=== PATIENT | male | born 1995 | race Caucasian/White ===

== ENCOUNTER 2018-06-19 11:24 | Emergency (ER) | payer OTHER ==
[2018-06-19 11:34] VITALS: BP 129/82; PULSE 98; RESP 18; TEMP 98.5
[2018-06-19] MEDS ORDERED: FAMOTIDINE 20 MG TAB PO STA (12:04)
[2018-06-19] MEDS ORDERED: predniSONE 20 MG TAB PO STA (12:04)
--- NOTE | 2018-06-19 12:08 | ED ---
General Adult HPI - General Chief complaint: Skin/Abscess/Foreign Body Stated complaint: bee sting to finger Time Seen by Provider: 06/19/18 11:53 Source: patient, RN notes reviewed Mode of arrival: ambulatory Limitations: no limitations - History of Present Illness Initial comments: Patient's a 22-year-old male presenting to the emergency room today with chief complaint of insect bite that occurred to the left pinky yesterday afternoon per patient states that he felt something sting him. He states he did not see it. Patient states that he's had some increased swelling to the left hand. Patient states that he did take some Benadryl yesterday has also taken again today. States swelling still present. States locally tender. Patient denies any other complaints or symptoms. Patient denies any recent fever, chills, shortness of breath, chest pain, back pain, abdominal pain, nausea or vomiting, numbness or tingling, headaches or visual changes, or any other complaints. - Related Data Home Medications Medication Instructions Recorded Confirmed HYDROcodone/APAP 10-325MG [Vashon 1 tab PO Q6H PRN 11/23/15 12/29/15 10-325] Previous Rx's Medication Instructions Recorded Penicillin V Potassium [Pen Vee K] 500 mg PO QID 10 Days day 12/29/15 Famotidine [Pepcid] 20 mg PO BID #20 tablet 06/19/18 predniSONE 60 mg PO DAILY 5 Days tab 06/19/18 Allergies Allergy/AdvReac Type Severity Reaction Status Date / Time No Known Allergies Allergy Verified 06/19/18 11:32 Review of Systems ROS Statement: Those systems with pertinent positive or pertinent negative responses have been documented in the HPI. ROS Other: All systems not noted in ROS Statement are negative. Past Medical History Additional Past Medical History / Comment(s): stomach ulcers, and hernia, chronic back pain. History of Any Multi-Drug Resistant Organisms: None Reported Additional Past Surgical History / Comment(s): eyes Past Psychological History: ADD/ADHD, Anxiety, Depression Smoking Status: Current every day smoker Past Alcohol Use History: None Reported Past Drug Use History: Marijuana General Exam - General Exam Comments Initial Comments: General: The patient is awake and alert, in no distress, and does not appear acutely ill. Eye: Pupils are equal, round and reactive to light, extra-ocular movements are intact. No nystagmus. There is normal conjunctiva bilaterally. No signs of icterus. Ears, nose, mouth and throat: There are moist mucous membranes and no oral lesions. Neck: The neck is supple, there is no tenderness or JVD. Cardiovascular: There is a regular rate and rhythm. No murmur, rub or gallop is appreciated. Respiratory: Lungs are clear to auscultation, respirations are non-labored, breath sounds are equal. No wheezes, stridor, rales, or rhonchi. Musculoskeletal: Normal ROM, no tenderness. Strength 5/5. Sensation intact. Pulses equal bilaterally 2+. Neurological: A&O x 3. CN II-XII intact, There are no obvious motor or sensory deficits. Coordination appears grossly intact. Speech is normal. Skin: Local swelling to left hand minimal redness to the posterior aspect. No lymphangitic streaking. Psychiatric: Cooperative, appropriate mood & affect, normal judgment. Limitations: no limitations Course Vital Signs 06/19/18 11:32 Temperature 98.5 F Pulse Rate 98 Respiratory 18 Rate Blood Pressure 129/82 O2 Sat by Pulse 100 Oximetry Medical Decision Making - Medical Decision Making Patient's vital stable. Was stung to the left pinky finger yesterday. Has been taking Benadryl. No improvement. Patient denies any other complaints other than pain swelling to the left hand. No difficulty breathing swallowing. No angioedema. Options were discussed with patient about a shot of steroids here the emergency room he has declined. He states he does not like shots would rather take pills. Patient will be started on prednisone and also Pepcid here in the emergency room. Advised continue Benadryl. Advised return if symptoms increase or worsen. Disposition Clinical Impression: Insect bite, Allergic reaction Disposition: HOME SELF-CARE Condition: Good Instructions: General Allergic Reaction (ED) Additional Instructions: Please continue Benadryl one to 2 tabs every 6 hours along with Pepcid and steroids as prescribed. Please return to the emergency room if any symptoms increase or worsen. Prescriptions: Famotidine [Pepcid] 20 mg PO BID #20 tablet predniSONE 60 mg PO DAILY 5 Days tab Is patient prescribed a controlled substance at d/c from ED?: No Referrals: None,Stated [Primary Care Provider] - 1-2 days Time of Disposition: 12:08
== END 2018-06-19 12:24 | disposition home or self-care (01) ==
LOC: EC 11:24
DX: T63.481A Toxic effect of venom of other arthropod, accidental (unintentional), initial encounter (principal); F17.200 Nicotine dependence, unspecified, uncomplicated
CPT/HCPCS: 99282; J7512

== ENCOUNTER → 2024-12-21 | Outpatient (CLI) | payer BC ==
--- NOTE | 2024-12-21 18:54 | CT ---
EXAMINATION TYPE: CT abdomen pelvis w con DATE OF EXAM: 12/21/2024 6:36 PM COMPARISON: 11/23/2015 CLINICAL INDICATION: Male, 29 years old with history of R10.9 ABDOMINAL PAIN, Generalized abdominal p ain, pt states a feeling of cramping that is almost constant TECHNIQUE:CT scan of the abdomen and pelvis is performed with Oral Contrast and with IV Contrast, pat ient injected with 100ml mL of Isovue 300. CT DLP: 391 mGycm, Automated exposure control for dose reduction was used. FINDINGS: LUNG BASES-: No visible nodule. No infiltrate. LIVER/GB: No calcified gallstones. No space occupying hepatic lesion. Biliary tree is of normal ca liber. PANCREAS: No inflammation. No distinct mass. SPLEEN: No splenic enlargement. No lesion seen. ADRENALS: No nodule. No thickening. KIDNEYS/BLADDER: No hydronephrosis. No nephrolithiasis. No distinct renal mass. Urinary bladder g rossly unremarkable. BOWEL: There is the suggestion of a doughnut sign left mid abdomen axial images 49 and 50 as well as coronal image 25 and sagittal image 70. This raises the possibility of jejunal intussusception which could be intermittent. Correlate clinically and consider small bowel follow-through. Normal appendix. Normal bowel caliber. No inflammation. GENITAL ORGANS: No gross abnormality. LYMPH NODES: No greater than 1cm abdominal or pelvic lymph nodes are appreciated. AORTA: No significant abnormality. OSSEOUS STRUCTURES: No significant abnormality is seen. OTHER: No significant additional abnormality is seen. IMPRESSION: 1. There is the suggestion of a doughnut sign left mid abdomen axial images 49 and 50 as well as michael nal image 25 and sagittal image 70. This raises the possibility of jejunal intussusception which coul d be intermittent. Correlate clinically and consider small bowel follow-through. [facility], , 12/21/2024 6:51 PM
== END | disposition home or self-care (01) ==
LOC: RADCTMAIN 16:53
PROVIDERS: ATTEND Emergency Medicine
DX: R10.84 Generalized abdominal pain (principal)
CPT/HCPCS: 74177

== ENCOUNTER → 2025-01-17 | Outpatient (CLI) | payer BC ==
--- NOTE | 2025-01-17 12:44 | FL ---
EXAMINATION TYPE: FL UGI w small bowel DATE OF EXAM: 01/17/2025 COMPARISON: CT abdomen pelvis dated 12/21/2024 CLINICAL INDICATION: Male, 29 years old with history of R10.12 Left upper quadrant pain; PHH, TECHNIQUE: A air contrast FL UGI w small bowel study is performed with small bowel follow through. A total of 94 seconds of fluoroscopic time was utilized during procedure and 27 images obtained. Tot al dose area product (DAP) in uGy*m?, mGy*cm? (or similar): . FINDINGS: [employer]liance [employer] image of the abdomen shows no gross abnormality. The esophagus shows normal motility and emptying into the stomach. No evidence of hiatal hernia or s tricture noted. The stomach shows normal distensibility, peristalsis, and mucosal folds. No evidence of any mass or ulcer disease. No significant esophageal reflux was seen during real time performance of this study. The duodenal bulb and sweep are unremarkable. The small bowel study shows normal transit to the colon in less than 30 minutes. There is normal muc osal fold pattern throughout the small bowel. There is no evidence of any stricture or filling defec t noted. The terminal ileum is unremarkable. IMPRESSION: Normal upper GI study and small bowel follow through. No fluoroscopic evidence to sugges t intussusception at this time. Findings may have been intermittent at the time of prior CT. Consider pill endoscopy if felt to be indicated. [facility], , 01/17/2025 12:42 PM
== END | disposition home or self-care (01) ==
LOC: RADFLMAIN 09:03
PROVIDERS: ATTEND Internal Medicine Gastroenterology
DX: R10.12 Left upper quadrant pain (principal)
CPT/HCPCS: 74240; 74248